=== PATIENT | female | born 1990 | race Hispanic/Latino ===

== ENCOUNTER 2019-03-10 15:08 | Emergency (ER) | payer SELFPAY ==
--- NOTE | 2019-03-10 15:55 | Emergency Department Report ---
ED General Adult HPI - General Chief complaint: Alcohol Stated complaint: OVERDOSE/DETOX Time Seen by Provider: 03/10/19 15:50 Source: patient, EMS Mode of arrival: Stretcher Limitations: No Limitations - History of Present Illness Initial comments: Patient is a 28-year-old female who is presenting with need for medical clearance. Patient is a patient [facility] and was sent here for medical clearance. Patient states last drink was approximately one hour ago. Patient denies nausea vomiting seizure or abdominal pain. Patient states that she is a heavy drinker and cannot quantify how much she drinks daily. Patient's only complaint is that she feels slightly sleepy at the moment. Severity scale (0 -10): 0 - Related Data Allergies Allergy/AdvReac Type Severity Reaction Status Date / Time No Known Allergies Allergy Unverified 03/10/19 15:10 ED Review of Systems ROS: Stated complaint: OVERDOSE/DETOX Other details as noted in HPI Comment: All other systems reviewed and negative ED Past Medical Hx - Past Medical History Previous Medical History?: No - Surgical History Past Surgical History?: No - Social History Smoking Status: Current Every Day Smoker Substance Use Type: Alcohol, Heroin ED Physical Exam - General Limitations: No Limitations General appearance: alert, in no apparent distress, lethargic - Head Head exam: Present: atraumatic, normocephalic - Eye Eye exam: Present: normal appearance - ENT ENT exam: Present: mucous membranes moist - Neck Neck exam: Present: normal inspection - Respiratory Respiratory exam: Present: normal lung sounds bilaterally. Absent: respiratory distress, wheezes, rales, rhonchi - Cardiovascular Cardiovascular Exam: Present: regular rate, normal rhythm, normal heart sounds. Absent: systolic murmur, diastolic murmur, rubs, gallop - GI/Abdominal GI/Abdominal exam: Present: soft, normal bowel sounds. Absent: distended, tenderness, guarding, rebound - Extremities Exam Extremities exam: Present: normal inspection - Back Exam Back exam: Present: normal inspection - Neurological Exam Neurological exam: Present: alert, oriented X3 - Psychiatric Psychiatric exam: Present: normal affect, normal mood - Skin Skin exam: Present: warm, dry, intact, normal color. Absent: rash ED Course Vital Signs 03/10/19 03/10/19 03/10/19 15:24 17:22 17:24 Temperature 98.4 F Pulse Rate 82 93 H Respiratory 16 12 12 Rate Blood Pressure 124/81 117/7 [Right] O2 Sat by Pulse 97 97 97 Oximetry - Reevaluation(s) Reevaluation #1: 03/10/19 18:09 Patient was here as a patient awaiting medical clearance for [facility]. Patient was found smoking a cigarette and are restroom. When confronted the patient became angry. Patient stated she no longer wanted to be treated hospital. Because of the high alcohol level attempt was made to place the patient on 12/04/2012. While filling out the form and arranging for patient to have a sitter she left on her own accord. We're unable to stop the patient from leaving the hospital. ED Medical Decision Making - Lab Data Result diagrams: 03/10/19 16:02 03/10/19 16:02 Lab Results 03/10/19 03/10/19 03/10/19 Range/Units 16:02 16:02 16:02 WBC TNR RBC TNR Hgb TNR Hct TNR MCV TNR MCH TNR MCHC TNR RDW TNR Plt Count TNR Lymph % (Auto) TNR [place] % (Auto) TNR Eos % (Auto) TNR Baso % (Auto) TNR Lymph # TNR [place] # TNR Eos # TNR Baso # TNR Add Manual Diff TNR Seg Neutrophils % TNR Seg Neutrophils # TNR Sodium 147 H (137-145) mmol/L Potassium 3.9 (3.6-5.0) mmol/L Chloride 111.1 H (98-107) mmol/L Carbon Dioxide 20 L (22-30) mmol/L Anion Gap 20 mmol/L BUN 7 (7-17) mg/dL Creatinine 0.5 L (0.7-1.2) mg/dL Estimated GFR > 60 ml/min BUN/Creatinine Ratio 14 % Glucose 96 (65-100) mg/dL Calcium 8.5 (8.4-10.2) mg/dL Total Bilirubin < 0.20 (0.1-1.2) mg/dL AST 21 (5-40) units/L ALT 13 (7-56) units/L Alkaline Phosphatase 69 (35-129) units/L Total Protein 7.2 (6.3-8.2) g/dL Albumin 4.3 (3.9-5) g/dL Albumin/Globulin Ratio 1.5 % HCG, Qual (Negative) Salicylates < 0.3 L (2.8-20.0) mg/dL Acetaminophen (10.0-30.0) ug/mL Plasma/Serum Alcohol (0-0.07) % 03/10/19 03/10/19 03/10/19 Range/Units 16:02 16:02 16:02 WBC RBC Hgb Hct MCV MCH MCHC RDW Plt Count Lymph % (Auto) [place] % (Auto) Eos % (Auto) Baso % (Auto) Lymph # [place] # Eos # Baso # Add Manual Diff Seg Neutrophils % Seg Neutrophils # Sodium (137-145) mmol/L Potassium (3.6-5.0) mmol/L Chloride (98-107) mmol/L Carbon Dioxide (22-30) mmol/L Anion Gap mmol/L BUN (7-17) mg/dL Creatinine (0.7-1.2) mg/dL Estimated GFR ml/min BUN/Creatinine Ratio % Glucose (65-100) mg/dL Calcium (8.4-10.2) mg/dL Total Bilirubin (0.1-1.2) mg/dL AST (5-40) units/L ALT (7-56) units/L Alkaline Phosphatase (35-129) units/L Total Protein (6.3-8.2) g/dL Albumin (3.9-5) g/dL Albumin/Globulin Ratio % HCG, Qual Negative (Negative) Salicylates (2.8-20.0) mg/dL Acetaminophen < 5.0 L (10.0-30.0) ug/mL Plasma/Serum Alcohol 0.37 H (0-0.07) % Critical care attestation.: If time is entered above; I have spent that time in minutes in the direct care of this critically ill patient, excluding procedure time. ED Disposition Clinical Impression: Alcohol intoxication Disposition: - LEFT AGAINST MED ADVICE Is pt being admited?: No Does the pt Need Aspirin: No Condition: Stable Time of Disposition: 18:11
[2019-03-10 16:33] LABS: Alanine Aminotransferase 13 units/L (7-56); Albumin 4.3 g/dL (3.9-5); BUN/Creatinine Ratio 14; Blood Urea Nitrogen 7 mg/dL (7-17); Calcium 8.5 mg/dL (8.4-10.2); Hemolysis Index 14
[2019-03-10 16:38] LABS: Hematocrit TNR % (30.3-42.9); Hemoglobin TNR gm/dl (10.1-14.3); Lymphocytes % (Auto) TNR % (13.4-35.0); Mean Corpuscular HGB Conc TNR % (30-34); Mean Corpuscular Volume TNR fl (79-97); Mean Platelet Volume TNR fl (6-12); Monocytes % (Auto) TNR % (0.0-7.3); Platelet Count TNR K/mm3 (140-440); Red Blood Count TNR M/mm3 (3.65-5.03); Red Cell Distribution Width TNR % (13.2-15.2)
[2019-03-10 16:39] LABS: Basophils # (Auto) TNR K/mm3 (0.0-0.1); Basophils % (Auto) TNR % (0.0-1.8); Eosinophils # (Auto) TNR K/mm3 (0.0-0.4); Eosinophils % (Auto) TNR % (0.0-4.3); Lymphocytes # (Auto) TNR K/mm3 (1.2-5.4); Monocytes # (Auto) TNR K/mm3 (0.0-0.8)
[2019-03-10 17:24] VITALS: BP 117/7
[2019-03-10 18:39] LABS: Amphetamine Screen,Urine PRESUMPTIVE NEGATIVE; Benzodiazepines Screen,Urine PRESUMPTIVE NEGATIVE; Cannabinoid Screen,Urine PRESUMPTIVE NEGATIVE; Cocaine Screen,Urine PRESUMPTIVE NEGATIVE; Methadone Screen,Urine PRESUMPTIVE NEGATIVE; Opiate Screen,Urine PRESUMPTIVE NEGATIVE
[2019-03-10 18:47] LABS: Bacteria,Urine 2+ /HPF (Negative); Bilirubin,Urine NEG (Negative); Blood,Urine SM (Negative); Color,Urine Yellow (Yellow); Mucus,Urine FEW /HPF; Protein,Urine <15 mg/dL mg/dL (Negative); Urobilinogen,Urine < 2.0 mg/dL (<2.0)
[2019-03-10 18:51] LABS: Basophils % (Auto) 0.4 % (0.0-1.8); Eosinophils # (Auto) 0.1 K/mm3 (0.0-0.4); Eosinophils % (Auto) 1.3 % (0.0-4.3); Hemoglobin 14.4 gm/dl (10.1-14.3); Lymphocytes # (Auto) 2.6 K/mm3 (1.2-5.4); Lymphocytes % (Auto) 52.4 % (13.4-35.0); Mean Corpuscular HGB Conc 34 % (30-34); Mean Corpuscular Volume 94 fl (79-97); Monocytes # (Auto) 0.3 K/mm3 (0.0-0.8); Monocytes % (Auto) 6.2 % (0.0-7.3); Platelet Count 258 K/mm3 (140-440); Red Blood Count 4.46 M/mm3 (3.65-5.03); Red Cell Distribution Width 13.6 % (13.2-15.2)
== END 2019-03-10 18:05 | disposition left against medical advice (07) ==
LOC: EDBD → ED 15:08
DX: F10.129 Alcohol abuse with intoxication, unspecified (principal); F17.200 Nicotine dependence, unspecified, uncomplicated; F11.10 Opioid abuse, uncomplicated
CPT/HCPCS: 36415; 80053; 80307; 80320; 81001; 84703; 85025; G0480

== ENCOUNTER 2019-03-11 13:13 | Emergency (ER) | payer SELFPAY ==
--- NOTE | 2019-03-11 13:23 | Event Note ---
ED Screening Note ED Screening Note: pt presents SI last two days ago no specific plan no [facility] to [facility] last drank last night states she drinks a couple of bottles of liquor a day previously used heroin and crack states it has been 2-3 years no psych facility previously has been to detox facility before no PMHx no allergies to meds LNMP: 3 weeks ago This initial assessment/diagnostic orders/clinical plan/treatment(s) is/are subject to change based on patients health status, clinical progression and re- assessment by fellow clinical providers in the ED. Further treatment and workup at subsequent clinical providers discretion. Patient/guardian urged not to elope from the ED as their condition may be serious if not clinically assessed and managed. Initial orders include: mental health protocol
[2019-03-11 14:33] LABS: Basophils # (Auto) 0.1 K/mm3 (0.0-0.1); Basophils % (Auto) 0.8 % (0.0-1.8); Eosinophils # (Auto) 0.1 K/mm3 (0.0-0.4); Eosinophils % (Auto) 0.4 % (0.0-4.3); Hematocrit 46.6 % (30.3-42.9); Hemoglobin 15.8 gm/dl (10.1-14.3); Lymphocytes # (Auto) 2.6 K/mm3 (1.2-5.4); Mean Corpuscular HGB Conc 34 % (30-34); Mean Corpuscular Volume 94 fl (79-97); Monocytes # (Auto) 0.6 K/mm3 (0.0-0.8); Monocytes % (Auto) 4.6 % (0.0-7.3); Platelet Count 315 K/mm3 (140-440); Red Blood Count 4.95 M/mm3 (3.65-5.03); Red Cell Distribution Width 13.7 % (13.2-15.2)
[2019-03-11 14:52] LABS: Alanine Aminotransferase 22 units/L (7-56); Albumin 5.3 g/dL (3.9-5); BUN/Creatinine Ratio 20; Blood Urea Nitrogen 10 mg/dL (7-17); Calcium 9.8 mg/dL (8.4-10.2); Hemolysis Index 8
[2019-03-11 14:54] LABS: Mucus,Urine FEW /HPF
[2019-03-11 15:09] LABS: Amphetamine Screen,Urine PRESUMPTIVE NEGATIVE; Benzodiazepines Screen,Urine PRESUMPTIVE NEGATIVE; Cocaine Screen,Urine PRESUMPTIVE NEGATIVE; Methadone Screen,Urine PRESUMPTIVE NEGATIVE; Opiate Screen,Urine PRESUMPTIVE NEGATIVE
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
[2019-03-11 15:14] LABS: Bilirubin,Urine Negative (Negative); Color,Urine Yellow (Yellow); PH,Urine 7.5 (5.0-7.0)
[2019-03-11 15:15] LABS: Urobilinogen,Urine < 2.0 mg/dL (<2.0)
[2019-03-11 15:23] LABS: Cannabinoid Screen,Urine PRESUMPTIVE POSITIVE
[2019-03-11] MEDS ORDERED: THIAMINE 100 MG, FOLIC ACID 1 MG, MULTIPLE VITAMIN INJ, ADULT 10 ML in SODIUM CHLORIDE ... IV ONE (15:40)
[2019-03-11] MEDS ORDERED: SODIUM CHLORIDE 0.9% 1000 ML 1,000 ML IV ONE (15:40)
[2019-03-11] MEDS: LORazepam 2 MG TAB PO PRN (21:08)
[2019-03-11] MEDS: SODIUM CHLORIDE 0.9% 1000 ML 1,000 ML IV ONE ×2 (21:09→21:30)
[2019-03-11] MEDS ORDERED: SODIUM CHLORIDE 0.9% 1000 ML 1,000 ML ONE (21:23)
[2019-03-12] MEDS: LORazepam 2 MG TAB PO PRN ×4 (06:05→17:28)
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
[2019-03-12] MEDS ORDERED: PRAZOSIN 1 MG CAP PO SCH (22:00)
[2019-03-12] MEDS ORDERED: MIRTAZAPINE 15 MG TAB PO SCH (22:00)
[2019-03-13 08:06] VITALS: BP 112/77
--- NOTE | 2019-03-13 14:10 | Progress Note ---
Subjective - Reason for Consult Consult date: 03/13/19 Reason for consult: Psychiatric Follow-up Evaluation - Chief Complaint Chief complaint: "" Patient is a 28 y.o. white female who presented to the ER for ETOH and SI's. Today the patient was calm during the assessment. She stated that she has a hx of alcohol/substance abuse (heroin). She stated that her last drink was 2 or 3 days ago. Originally the patient was brought to the ER for medical clearance from [facility]. Mental Status Exam - Vital signs Last Vital Signs Temp 97.7 F 03/13/19 08:05 Pulse 100 H 03/13/19 08:05 Resp 14 03/13/19 08:05 BP 112/77 03/13/19 08:05 Pulse Ox 97 03/13/19 08:05 - Exam Narrative exam: Mental Status Exam Appearance: calm Behavior: poor eye contact Speech: regular rate and tone Mood: "down" Affect: flat Thought Process: circumstantial Thought Content: denies HI's and AVH's Motor Activity: lying in bed Cognition: A/O x3 Insight: variable to fair Judgment: poor Assessment and Plan Impression: MDD. Alcohol Use DO. PTSD. Today the patient was calm during the assessment. Mild to Moderate tremors (etoh). The patient was positive for barbiturates. DDx: Alcohol Induced Mood DO Recommendation/Plan: 1. Continue 2013. 2. Continue Remeron 15 mg PO HS for depression/PTSD and Prazosin 1 mg PO HS for PTSD symptoms. Discussed possible suicidality/medication induced michelle with the patient reference Remeron with the patient, she verbalized understanding. Disposition: Reassess the patient in 24 to determine proper dispo. Staffed with Dr Marichuy Rowley.
== END 2019-03-13 10:29 ==
LOC: ED 13:13
DX: F32.9 Major depressive disorder, single episode, unspecified (principal); F17.200 Nicotine dependence, unspecified, uncomplicated; F10.929 Alcohol use, unspecified with intoxication, unspecified
CPT/HCPCS: 36415; 80053; 80307; 81001; 82550; 84703; 85025; 93005; 93010; 99285; J3411; J7030; 80320; G0480